=== PATIENT | female | born 1940 | race Caucasian/White ===

== ENCOUNTER 2023-01-22 11:26 | Outpatient (REF) | payer MEDICARE, SELFPAY ==
--- NOTE | ~2023-01-22 | XR_ITS ---
EXAMINATION: XR LUMBOSACRAL SPINE WITH OBLIQUES CLINICAL INFORMATION: Lumbago with sciatica. COMPARISON: Radiographs dated 04/26/2006. TECHNIQUE: AP and lateral (neutral, flexion and extension) views of the lumbosacral spine are submitted. FINDINGS: There is bony demineralization. Vertebral body heights are normal. There is a mild to moderate lumbar levoscoliosis. There is mild posterior disc space narrowing at L1-L2 and L2-L3. There is moderate posterior disc space narrowing at L3-L4. At L4-L5, there is vacuum disc phenomenon, disc space narrowing and a 5 mm retrolisthesis. There is moderate disc space narrowing at L5-S1. No acute fracture or spondylolisthesis is seen. There is multi-level lumbar spondylosis and facet arthropathy. Aortoiliac atherosclerotic calcifications are seen. There is a left hip arthroplasty. XR/XR lumbar spine 4V min IMPRESSION: There is multi-level lumbar degenerative disc disease, spondylosis and facet arthropathy. Degenerative disc disease is most pronounced at L4-L5, where it is severe.
--- NOTE | ~2023-01-22 | XR_ITS ---
EXAMINATION: XR HIP, LEFT CLINICAL INFORMATION: Pain. COMPARISON: Radiographs dated 02/20/2022. TECHNIQUE: AP view of the left hip. FINDINGS: There is bony demineralization. An intact left hip total arthroplasty is seen, without hardware failure or loosening noted. An intact cerclage wire is seen applied to the proximal left femoral shaft. There is degenerative change of the left sacroiliac joint. No foreign body is noted. XR/XR hip LT min 2V IMPRESSION: An intact left hip arthroplasty is noted, without hardware failure or loosening seen.
== END 2023-01-22 11:27 | disposition home or self-care (01) ==
LOC: HO.HOSX 11:26
PROVIDERS: PCP Pediatrics; Visit Provider Physician Assistant
DX: M54.42 Lumbago with sciatica, left side (principal)
CPT/HCPCS: 72110; 73502; 99202

== ENCOUNTER → 2023-02-16 13:10 | Outpatient (BNVA) | payer MEDICARE, SELFPAY | PROVIDERS: PCP Pediatrics; Visit Provider Neurological Surgery | DX: M54.40 Lumbago with sciatica, unspecified side (principal); M43.16 Spondylolisthesis, lumbar region | CPT/HCPCS: 99212 ==

== ENCOUNTER 2023-02-23 12:45 | Outpatient (RCR) | payer MEDICARE, SELFPAY | END 2023-03-03 16:00 | disposition home or self-care (01) | LOC: HO.WCC 12:45 | PROVIDERS: Visit Provider Physician Assistant | DX: Z09 Encounter for follow-up examination after completed treatment for conditions other than malignant neoplasm (principal); E11.620 Type 2 diabetes mellitus with diabetic dermatitis; E11.40 Type 2 diabetes mellitus with diabetic neuropathy, unspecified; I10 Essential (primary) hypertension; N39.41 Urge incontinence; Z87.2 Personal history of diseases of the skin and subcutaneous tissue | CPT/HCPCS: 99213 ==